=== PATIENT | female | born 1955 | race Caucasian/White ===

== ENCOUNTER 2017-08-16 14:15 | Emergency (ER) | payer OTHER ==
[~2017-08-16] VITALS: Ht 162.6 cm; Wt 66.0 kg
[~2017-08-16 14:15] MED LIST: DESYREL50 MG PO; NORCO1 TA1 PO; PAXIL30 MG PO; SYNTHROID100 MCG PO; VALTREX1 GM PO
[2017-08-16] MEDS ORDERED: ESTRACE1 MG PO (14:31)
[2017-08-16] MEDS ORDERED: CEPHALEXIN500 M1 PO (15:57)
[2017-08-16 17:05] VITALS: BP 145/77
== END 2017-08-16 17:24 | disposition home or self-care (01) | DRG 125 ==
LOC: ED 14:15
PROC: 0HQ1XZZ Repair Face Skin, External Approach (ICD-10-PCS; principal; 2017-08-16)
PROC: 0HQEXZZ Repair Left Lower Arm Skin, External Approach (ICD-10-PCS; 2017-08-16)
DX: S01.112A Laceration without foreign body of left eyelid and periocular area, initial encounter (principal); S80.212A Abrasion, left knee, initial encounter; E03.9 Hypothyroidism, unspecified; S51.012A Laceration without foreign body of left elbow, initial encounter; K21.9 Gastro-esophageal reflux disease without esophagitis; F32.9 Major depressive disorder, single episode, unspecified; V18.0XXA Pedal cycle driver injured in noncollision transport accident in nontraffic accident, initial encounter; Y93.55 Activity, bike riding

== ENCOUNTER 2018-10-04 10:56 | Emergency (ER) | payer OTHER ==
[~2018-10-04] VITALS: Ht 162.6 cm; Wt 68.0 kg
[~2018-10-04 10:56] MED LIST changes: +CEPHALEXIN500 M1 PO; +ESTRACE1 MG PO
[2018-10-04] MEDS ORDERED: PERCOCET 5/325M1 TAB PO (15:24)
[2018-10-04 15:40] VITALS: BP 119/66
== END 2018-10-04 15:40 | disposition home or self-care (01) | DRG 605 ==
LOC: ED 10:56
DX: S80.212A Abrasion, left knee, initial encounter (principal); S90.512A Abrasion, left ankle, initial encounter; S50.312A Abrasion of left elbow, initial encounter; V18.4XXA Pedal cycle driver injured in noncollision transport accident in traffic accident, initial encounter; Y93.55 Activity, bike riding
CPT/HCPCS: L1830

== ENCOUNTER 2018-11-25 14:00 | Outpatient (RCR) | payer OTHER ==
[~2018-11-25 14:00] MED LIST changes: +PERCOCET 5/325M1 TAB PO
== END 2018-11-25 15:00 | disposition home or self-care (01) | DRG 556 ==
LOC: PT 14:00
PROVIDERS: ATTEND Orthopaedic Surgery
DX: M25.562 Pain in left knee (principal)